=== PATIENT | male | born 1990 | race Two or more races ===

== ENCOUNTER 2017-06-06 12:15 | Emergency (ER) | payer OTHER ==
[~2017-06-06] VITALS: Ht 167.6 cm; Wt 67.6 kg
[2017-06-06] MEDS ORDERED: BACTRIM,SEPT1 TABLET PO (13:40)
[2017-06-06 14:02] VITALS: BP 96/67
== END 2017-06-06 14:06 | disposition home or self-care (01) ==
LOC: EME 12:15 → RME 12:15
PROC: 0H9DXZZ Drainage of Right Lower Arm Skin, External Approach (ICD-10-PCS; principal; 2017-06-06)
DX: L02.413 Cutaneous abscess of right upper limb (principal); F19.90 Other psychoactive substance use, unspecified, uncomplicated; F17.200 Nicotine dependence, unspecified, uncomplicated
CPT/HCPCS: 73090; 87070; 87075; 87076; 87077; 87186; 87205; 99281; 99285